=== PATIENT | male | born 1995 | race Caucasian/White ===

== ENCOUNTER 2020-03-15 19:20 | Emergency (ER) | payer MEDICAID ==
[~2020-03-15] VITALS: Ht 175.3 cm; Wt 85.9 kg
[2020-03-15 19:41] VITALS: BP 159/93
--- NOTE | 2020-03-15 20:27 | NUR ---
PATIENT REFUSING TO HAVE BLOOD DRAW. STATES "I WILL HAVE A PANIC ATTACK"
[2020-03-15 20:28] LABS: CLARITY,URINE CLEAR (Clear); COLOR,URINE YELLOW (Yellow); GLUCOSE, URINE NEGATIVE (Neg); KETONES,URINE NEGATIVE (Neg); LEUKOCYTE ESTERASE ,URINE NEGATIVE (Neg); NITRITES, URINE NEGATIVE (Neg); OCCULT BLOOD,URINE NEGATIVE (Neg); PH,URINE 6.5 (4.8-8.0); PROTEIN,URINE NEGATIVE (Neg); UROBILINOGEN,URINE 0.2 E.U/dL (0.2-1.0)
[2020-03-15 20:34] LABS: UA COLLECTION TYPE URINAL
== END 2020-03-15 21:09 | disposition left against medical advice (07) ==
LOC: ER 19:21
DX: R10.31 Right lower quadrant pain (principal); R11.0 Nausea
CPT/HCPCS: 81003; 99283